=== PATIENT | male | born 1975 | race Hispanic/Latino ===

== ENCOUNTER 2025-02-05 13:26 | Emergency (ER) | payer OTHER, SELFPAY ==
--- NOTE | ~2025-02-05 | XR_ITS ---
EXAMINATION: XR shoulder LT min 2V DATE: 02/05/2025 13:49 INDICATION: Postreduction left shoulder dislocation TECHNIQUE: AP internally and externally rotated and transscapular Y views of the left shoulder were o btained. COMPARISON: None FINDINGS: Normal alignment. There is a small linear calcific density projecting along the medial neck of the pr oximal left humerus potentially a small avulsion fracture fragment although no discrete donor site is identified. No other lesions suspicious for fracture identified.Mild acromioclavicular osteoarthriti s. Visualized portion of the left lung are clear with no pleural effusion or pneumothorax. Soft tissu es are unremarkable. IMPRESSION: 1. Normal alignment of the left glenohumeral joint. 2. Small linear calcific density along the medial neck of the proximal left humerus potentially a sma ll avulsion fracture fragment although no definitive donor site is identified to more specifically mederos ggest this. Reviewed, dictated and finalized at location A. IMPRESSION: 1. Normal alignment of the left glenohumeral joint. 2. Small linear calcific density along the medial neck of the proximal left hum erus potentially a small avulsion fracture fragment although no definitive dono r site is identified to more specifically suggest this.
[2025-02-05 13:32] VITALS: BP 120/78; PULSE 61; RESP 16; TEMP 36.4; O2SAT 99
--- NOTE | 2025-02-05 13:33 | ED.UPPEXIN ---
HPI - Extremity Injury (Upper) General Chief Complaint: Extremity Injury, Upper Stated Complaint: shoulder dislo? Time Seen by Provider: 02/05/25 13:27 History of Present Illness HPI narrative: 49-year-old male presenting to the emergency depart with potential left shoulder dislocation. He called EMS when a object fell onto his left upper extremity at his job site and he had some left upper shoulder pain. EMS noted that appeared anteriorly dislocated. On the transfer over here the shoulder spontaneously reduced after hitting a bump in the road. Patient states the pain improved but he is still having some residual pain in the left outer aspect of his deltoid. 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 He is primarily Haitian-speaking but understands and speaks [place]ian as well. Denies any other symptoms aside pain at this time. No neuropathy or weakness in the limb. No head trauma. No blood thinner use. Related Data Allergies Allergy/AdvReac Type Severity Reaction Status Date / Time No Known Allergies Allergy Verified 02/05/25 13:41 Review of Systems Review of Systems: As reviewed above in HPI Exam Narrative: GENERAL: [Well-appearing, well-nourished, and in no acute distress.] HEAD: [Normocephalic, atraumatic.] EYES: [PERRLA and EOMI.] ENT: Nares clear, no rhinorrhea or epistaxis. Mucous membranes moist. NECK: Supple. CHEST: [Clear to auscultation. No respiratory distress.] HEART: [Regular rate and rhythm]. No murmur heard. [Normal peripheral pulses.] ABDOMEN: [Soft, nondistended], [nontender], [No rigidity or guarding] EXTREMITIES: Normal range of motion. [No edema.] Tenderness to palpation left outer aspect of the deltoid but no overlying skin changes. No scapular pain, no clavicular pain. Full range of motion passive and active. 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 SKIN: Warm, dry, no rash. NEURO: [No focal deficits]. Alert and oriented [x3.] PSYCH: [Normal mood and affect.] Course Vital Signs Vital signs: Vital Signs Temperature 36.4 C 02/05/25 13:32 Pulse Rate 61 02/05/25 13:32 Respiratory Rate 16 02/05/25 13:32 Blood Pressure 120/78 02/05/25 13:32 Pulse Oximetry 99 02/05/25 13:32 Temperature 36.4 C 02/05/25 13:34 Pulse Rate 60 02/05/25 13:34 Respiratory Rate 17 02/05/25 13:34 Blood Pressure 149/118 H 02/05/25 13:34 Pulse Oximetry 98 02/05/25 13:34 Oxygen Delivery Room Air 02/05/25 13:34 MDM - Extremity Injury (Upper) MDM Narrative Medical decision making narrative: 49-year-old male presenting for potential left shoulder injury and possible dislocation that is now spontaneously reduced. EMS was called for suspected shoulder dislocation after an object fell onto his left shoulder at a job site. Shoulder did appear dislocated per EMS and spontaneously reduced and had improvement in his pain immediately afterwards in route. He is still complaining of some residual pain left outer aspect of his deltoid and clinical examination he is otherwise well-appearing, no obvious shoulder dislocation or overt fracture. Pulses are intact, neurovascular intact with good range of motion. Suspicion presently is for spontaneously reduced anterior shoulder dislocation but other shoulder dislocations or labral injury cannot be excluded. Will obtain two view x-rays and give him Toradol and Tylenol for analgesia. If patient has resolution of pain and symptomatology he will likely be able to be safely discharged with a sling for comfort and ortho referral. X-ray show normal alignment of the left glenohumeral joint and no appreciable dislocation. There is a small linear calcific density along the medial neck of the proximal humerus suggestive of potential avulsion fracture but no donor site to specifically identify this. Patient was placed in a sling for comfort and re-evaluated. Pain has been improved at this time and without any dislocation or neurovascular compromise he can be safely discharged home with orthopedics follow-up. He was given appropriate return precautions and Orthopedics instructions as well as a work note and work restrictions. Patient comfortable with this plan. Medical Records Attestation: I reviewed the patient's medical records. Imaging Data Attestation: I personally reviewed and interpreted this imaging study as follows: My impression: Impressions Shoulder X-Ray 02/05/25 14:07 IMPRESSION: 1. Normal alignment of the left glenohumeral joint. 2. Small linear calcific density along the medial neck of the proximal left humerus potentially a small avulsion fracture fragment although no definitive donor site is identified to more specifically suggest this. Discharge Plan Discharge Clinical Impression: Acute pain of left shoulder due to trauma, Fracture, humerus, proximal Patient Disposition: Home Condition: Stable Instructions: Antibiotic Form Additional Instructions: Your x-ray shows normal alignment of the shoulder joint. The left humerus has a small density that could be a avulsion fracture fragment although not definitive based on the x-ray film. Maintain the sling for comfort and follow-up with Orthopedic surgery. Return with any new or worsening concerns at any time. Patient Language: Haitian Prescriptions: New ibuprofen 800 mg tablet 800 mg PO TID PRN (Reason: pain) Qty: 30 0RF acetaminophen [Tylenol Extra Strength] 500 mg tablet 1,000 mg PO TID PRN (Reason: pain) Qty: 30 0RF Follow-up/Referrals: Pablo Draper MD [Physician] - 1 Week (Possible avulsion fracture left humerus, shoulder dislocation reduction) UNKNOWN,DOCTOR [Primary Care Provider] - Time of Disposition: 14:20
[2025-02-05 13:34] VITALS: BP 149/118; PULSE 60; RESP 17; TEMP 36.4; O2SAT 98
[2025-02-05] MEDS: KETOROLAC 30 MG/ML VIAL (*BKC) IM (13:59)
[2025-02-05] MEDS: ACETAMINOPHEN 500 MG TABLET 1000 MG PO (13:59)
[2025-02-05 14:58] VITALS: BP 105/63; PULSE 63; RESP 18; O2SAT 97
== END 2025-02-05 14:59 | disposition home or self-care (01) ==
PROVIDERS: Emergency Provider Student in an Organized Health Care Education/Training Program
DX: S42.212A Unspecified displaced fracture of surgical neck of left humerus, initial encounter for closed fracture (principal); W20.8XXA Other cause of strike by thrown, projected or falling object, initial encounter
CPT/HCPCS: 73030; 96372; 99283; 99284; A4565; A9270; J1885